=== PATIENT | female | born 1985 | race Caucasian/White ===

== ENCOUNTER 2023-11-23 08:06 | Inpatient (IN) | payer MEDICAID ==
[2023-11-23] MEDS ORDERED: Misoprostol 25 MCG (1/4 of 100 MCG) Tab VAG PRN (08:39)
[2023-11-23] MEDS ORDERED: Sodium Chloride 0.9% 10 ML Syringe FLUSH PRN (08:39)
[2023-11-23] MEDS ORDERED: Ondansetron 4 MG/2 ML SDV IVPUSH PRN (08:39)
[2023-11-23] MEDS ORDERED: Methylergonovine 0.2 MG/1 ML Amp IM PRN (08:39)
[2023-11-23] MEDS ORDERED: Acetaminophen 325 MG Tab PO PRN (08:39)
[2023-11-23] MEDS ORDERED: Carboprost Tromethamine 250 MCG/1 ML Amp IM PRN (08:39)
[2023-11-23] MEDS ORDERED: Misoprostol 400 MCG (4 X 100 MCG TAB) RECTAL PRN (08:39)
[2023-11-23] MEDS ORDERED: Tranexamic Acid 1,000 MG in Sodium Chloride 0.9% 100 ML IV PRN (08:39)
[2023-11-23] MEDS: Misoprostol 50 MCG (1/2 of 100 MCG) Tab VAG SCH (09:01)
[2023-11-23 09:12] LABS: HEMATOCRIT 34.5 % (37.0-47.0); HEMOGLOBIN 11.4 g/dL (12.0-16.0); MEAN CORPUSCULAR HEMOGLOBIN 29.3 pg (27.0-34.0); MEAN CORPUSCULAR VOLUME 88.7 fL (80-100); RED BLOOD CELL COUNT 3.89 10^6/uL (4.2-5.4); WHITE BLOOD CELL COUNT,WBC 10.5 10^3/uL (5.0-10.0)
[2023-11-23] MEDS: Lactated Ringers 1,000 ML IV SCH (14:14)
[2023-11-23] MEDS: Oxytocin/Normal Saline 30 UNIT/500 ML BAG IV SCH (14:15)
[2023-11-23] MEDS: Penicillin G Potassium 5 MILLUNITS in Sodium Chloride 0.9% 100 ML IV ONE (14:36)
[2023-11-23] MEDS: Penicillin G Potassium 2.5 MILLUNITS in Sodium Chloride 0.9% 100 ML IV SCH (16:33)
[2023-11-23] MEDS: Penicillin G Potassium 5,000,000 Unit Vial ONE (16:34)
[2023-11-23] MEDS: fentaNYL 100 MCG/2 ML SDV IVPUSH PRN (22:10)
[2023-11-24] MEDS: Lidocaine 1% 30 ML SDV INJECT ONE (00:15)
[2023-11-24] MEDS ORDERED: Simethicone 80 MG Tab.Chew PO PRN (00:52)
[2023-11-24] MEDS ORDERED: Oxytocin 10 Units/1 ML SDV IM PRN (00:52)
[2023-11-24] MEDS: Witch Hazel Medicated Pads 100/Jar TOP PRN (01:29)
[2023-11-24] MEDS: Benzocaine/Menthol 20%-0.5% Spray 78 GM Cannister TOP PRN (01:29)
[2023-11-24] MEDS: Ibuprofen 800 MG Tab PO PRN (01:30)
[2023-11-24] MEDS: Lidocaine 1% 30 ML SDV ONE (02:40)
[2023-11-24] MEDS: Lidocaine 1% 5 ML VIAL INJECT ONE (02:47)
[2023-11-24] MEDS: Lactated Ringers 1,000 ML IV ONE (02:48)
[2023-11-24] MEDS: Docusate Sodium 100 MG Cap PO PRN (08:54)
[2023-11-24] MEDS: Prenatal Multivitamin with Calcium/Folic Acid/Iron Tab PO SCH (08:54)
[2023-11-24] MEDS: Acetaminophen 325 MG Tab PO PRN (16:10)
[2023-11-25 07:23] LABS: HEMATOCRIT 32.4 % (37.0-47.0); HEMOGLOBIN 10.4 g/dL (12.0-16.0); MEAN CORPUSCULAR HEMOGLOBIN 29.1 pg (27.0-34.0); MEAN CORPUSCULAR HGB CONC 32.1 g/dL (33.0-35.0); MEAN CORPUSCULAR VOLUME 90.5 fL (80-100); RED BLOOD CELL COUNT 3.58 10^6/uL (4.2-5.4); WHITE BLOOD CELL COUNT,WBC 8.3 10^3/uL (5.0-10.0)
[2023-11-25 08:27] VITALS: PULSE 76
[2023-11-25 14:54] VITALS: BP 132/84
== END 2023-11-25 15:15 | disposition home or self-care (01) | DRG 807 ==
LOC: DL.OBCHECK 08:06 → DL.OB 08:07 → OBSVTOIN 23:47
PROVIDERS: ADMIT Family Medicine; ATTEND Family Medicine
PROC: 10E0XZZ Delivery of Products of Conception, External Approach (ICD-10-PCS; principal; 2023-11-23)
PROC: 0KQM0ZZ Repair Perineum Muscle, Open Approach (ICD-10-PCS; 2023-11-23)
PROC: 10907ZC Drainage of Amniotic Fluid, Therapeutic from Products of Conception, Via Natural or Artificial Opening (ICD-10-PCS; 2023-11-23)
PROC: 3E0P7VZ Introduction of Hormone into Female Reproductive, Via Natural or Artificial Opening (ICD-10-PCS; 2023-11-23)
DX: O99.824 Streptococcus B carrier state complicating childbirth (principal); Z37.0 Single live birth; O99.02 Anemia complicating childbirth; O99.814 Abnormal glucose complicating childbirth; O77.0 Labor and delivery complicated by meconium in amniotic fluid; O70.1 Second degree perineal laceration during delivery; Z3A.39 39 weeks gestation of pregnancy
CPT/HCPCS: 36415; 59409; 85027; A9270-GY; J2540; J2590; J3010; J3490; J7120